=== PATIENT | female | born 1975 | race Two or more races ===

== ENCOUNTER 2017-03-06 18:06 | Emergency (ER) | payer MEDICAID, OTHER ==
[~2017-03-06] VITALS: Ht 157.5 cm; Wt 70.3 kg
[2017-03-06 18:21] VITALS: BP 134/79
[2017-03-06] MEDS ORDERED: ACETAMINOPHEN 325 MG TAB PO ONE ×2 (18:22→18:30)
== END 2017-03-06 20:14 | disposition home or self-care (01) ==
LOC: ER 18:11
DX: N39.0 Urinary tract infection, site not specified (principal); E11.9 Type 2 diabetes mellitus without complications